=== PATIENT | female | born 1965 | race Caucasian/White ===

== ENCOUNTER 2020-06-14 12:34 | Emergency (ER) | payer OTHER ==
[~2020-06-14] VITALS: Ht 154.9 cm; Wt 65.8 kg
--- NOTE | 2020-06-14 12:34 | NUR ---
PT TAKEN TO ER BED 4.
[2020-06-14 12:35] VITALS: BP 120/58
--- NOTE | 2020-06-14 12:35 | NUR ---
RN AT BEDSIDE FOR PT TRIAGE.
--- NOTE | 2020-06-14 12:48 | NUR ---
55 Y/O FEMALE BIBA FROM [facility] FOR NAUSEA/VOMITING S/P COLONOSCOPY AT 0800. PT REPORTS VOMITING AND DIZZINESS. ON ASSESSMENT, ABDOMEN IS SOFT, FLAT AND NONTENDER WITH HYPOACTIVE BOWEL SOUNDS IN ALL 4 QUADRANTS. PT STATES LBM THIS MORNING. PT DENIES PAIN/SOB. PT IS A&O X4 WITH EVEN AND UNLABORED RESPIRATIONS. BED IS IN LOWEST POSITION, BRAKES LOCKED X1 SIDE RAIL UP. MEDHX: DENIES NKA
[2020-06-14] MEDS ORDERED: NACL 0.9% 1,000 ML IV ONE (12:50)
[2020-06-14 13:03] LABS: BASOPHILS # (AUTO) 0.1 K/uL (0.00-0.22); BASOPHILS % (AUTO) 0.6 % (0.0-2.0); HEMATOCRIT 40.4 % (36-48); HEMOGLOBIN 13.4 g/dL (12.0-16.0); LYMPHOCYTES # (AUTO) 1.1 K/uL (2.5-16.5); LYMPHOCYTES % (AUTO) 6.5 % (20.5-51.1); MEAN CORPUSCULAR HEMOGLOBIN 30 pg (27-31); MEAN CORPUSCULAR HGB CONC 33 g/dL (33-37); MEAN CORPUSCULAR VOLUME 91.5 fL (80-94); MONOCYTES # (AUTO) 0.4 K/uL (0.8-1.0); MONOCYTES % (AUTO) 2.5 % (1.7-9.3); NEUTROPHILS # (AUTO) 14.5 K/uL (1.8-7.7); NEUTROPHILS % (AUTO) 90.4 % (42.2-75.2); PLATELET COUNT (AUTO) 252 K/uL (140-450); RED BLOOD CELL COUNT(AUTO) 4.42 MIL/uL (4.20-5.40); RED CELL DISTRIBUTION WIDTH 13.1 % (11.6-13.7); WHITE BLOOD COUNT (AUTO) 16.1 K/uL (4.8-10.8)
--- NOTE | 2020-06-14 13:10 | NUR ---
EXHIBIT CARPENTER AT BEDSIDE FOR CHEST CHEST XRAY.
--- NOTE | 2020-06-14 13:25 | NUR ---
DR MCLEAN AT PT BEDSIDE FOR FURTHER EVALUATION
[2020-06-14 13:52] LABS: ALBUMIN 3.9 g/dL (3.4-5.0); CARBON DIOXIDE 21.8 mmol/L (21-32); CREATININE 0.7 mg/dL (0.6-1.3); POTASSIUM 3.8 mmol/L (3.5-5.1); TOTAL BILIRUBIN 0.7 mg/dL (0.0-1.0)
--- NOTE | 2020-06-14 14:01 | NUR ---
Spoke with Raudel Mcclendon, pt for updates.
--- NOTE | 2020-06-14 14:37 | NUR ---
Spoke with Dr. Sloan- professor of chemistry who performed colonoscopy. Provided with updates. Dr. Sloan wanted to update ERMD that he prescribed zofran 4 mg q8hr ([address]). [address] Romero made aware.
--- NOTE | 2020-06-14 16:13 | NUR ---
Spoke with Raudel pt for pending D/C.
[2020-06-14 16:42] VITALS: BP 104/59
--- NOTE | 2020-06-14 16:43 | NUR ---
Patient discharged with v/s stable. Written and verbal after care instructions given and explained. Patient alert, oriented and verbalized understanding of instructions. Ambulatory with steady gait. All questions addressed prior to discharge. ID band removed. Patient advised to follow up with PMD. Rx of Zofran 4mg ODT PO q6h N/V given. Patient educated on indication of medication including possible reaction and side effects. Opportunity to ask questions provided and answered.
== END 2020-06-14 16:43 | disposition home or self-care (01) ==
LOC: MED 12:34
DX: R11.2 Nausea with vomiting, unspecified (principal); R09.02 Hypoxemia; Z20.822 Contact with and (suspected) exposure to COVID-19; Z90.49 Acquired absence of other specified parts of digestive tract
CPT/HCPCS: 71045; 80053; 83690; 85025; 96360; 99284; U0003